=== PATIENT | male | born 1960 | race Caucasian/White ===

== ENCOUNTER 2018-04-10 01:04 | Emergency (ER) | payer OTHER ==
[~2018-04-10] VITALS: Ht 177.8 cm; Wt 98.0 kg
[2018-04-10] MEDS ORDERED: CEPHALEXIN 250MG CAPSULE PO ONE (03:15)
[2018-04-10] MEDS ORDERED: SULFAMETHOXAZOLE/TRIMETHOPRIM 800/160MG TABLET PO ONE (03:15)
[2018-04-10] MEDS ORDERED: IBUPROFEN 800MG TABLET PO ONE (03:15)
[2018-04-10 03:24] VITALS: BP 143/90
== END 2018-04-10 03:25 | disposition home or self-care (01) ==
LOC: ER 01:04
DX: L02.414 Cutaneous abscess of left upper limb (principal)
CPT/HCPCS: 10060; 99284